=== PATIENT | male | born 1995 | race Caucasian/White ===

== ENCOUNTER 2020-04-16 03:06 | Emergency (ER) | payer OTHER ==
[~2020-04-16] VITALS: Ht 175.3 cm; Wt 83.9 kg
[2020-04-16 03:11] VITALS: BP 141/97
[2020-04-16 03:42] VITALS: BP 141/97
== END 2020-04-16 03:35 | disposition home or self-care (01) ==
LOC: MED 03:06
DX: R20.0 Anesthesia of skin (principal)
CPT/HCPCS: 99281